=== PATIENT | female | born 1970 | race Caucasian/White ===

== ENCOUNTER 2018-10-12 17:20 | Emergency (ER) | payer SELFPAY ==
[2018-10-12 18:00] VITALS: BP 130/73; PULSE 68; TEMP 97.9; BMI 35.5
--- NOTE | 2018-10-12 18:03 | PDOC ---
Rapid Medical Evaluation Chief Complaint: Cold Symptoms Time Seen by Provider: 10/12/18 17:58 Medical Evaluation: Allergies Allergy/AdvReac Type Severity Reaction Status Date / Time No Known Allergies Allergy Verified 04/30/16 12:09 10/12/18 17:59 I have performed a brief in-person evaluation of this patient. The patient presents with a chief complaint of:fever, sore throat x 5 days Pertinent physical exam findings: erythema no exudate to throat I have ordered the following: throat culture The patient will proceed to the ED for further evaluation. 10/12/18 18:01 Discharge Disposition - Discharge Dispostion Condition at time of disposition: Stable - Referrals - Patient Instructions - Post Discharge Activity
--- NOTE | 2018-10-12 18:48 | PDOC ---
History of Present Illness - General Chief Complaint: Cold Symptoms Stated Complaint: FEVER Time Seen by Provider: 10/12/18 17:58 History Source: Patient Exam Limitations: Clinical Condition - History of Present Illness Initial Comments: 10/12/18 18:44 Patient with no significant past medical history present with complaint of five- day history of sore throat, fever and body aches. Patient reported fever of 102 this morning and has been taking Tylenol Motrin [id number] for fever. Patient denies nausea or vomiting. Patient denies cough, runny nose Timing/Duration: other (5 days) Past History - Past Medical History Allergies/Adverse Reactions: Allergies Allergy/AdvReac Type Severity Reaction Status Date / Time No Known Allergies Allergy Verified 04/30/16 12:09 Home Medications: Ambulatory Orders Amox-Tr/K Cl [Augmentin - 875Mg Tablet] 1 tab PO BID #14 tablet 10/12/18 Asthma: Yes CVA: No COPD: No DVT: No - Surgical History GI Surgery: No - Immunization History Immunization Up to Date: No - Suicide/Smoking/Psychosocial Hx Smoking History: Never smoked Have you smoked in the past 12 months: No Information on smoking cessation initiated: No Hx Alcohol Use: No Drug/Substance Use Hx: No Substance Use Type: None Review of Systems - Review of Systems Able to Perform ROS?: Yes Is the patient limited [place]ian proficient: No Constitutional: Yes: Chills, Fever, Malaise HEENTM: Yes: Symptoms Reported, See HPI, Throat Pain. No: Eye Pain, Blurred Vision, Tearing, Recent change in vision, Double Vision, Cataracts, Ear Pain, Ocular Prothesis, Ear Discharge, Nose Pain, Nose Congestion, Tinnitus, Nose Bleeding, Hearing Loss, Throat Swelling, Mouth Pain, Dental Problems, Difficulty Swallowing, Mouth Swelling, Other Respiratory: No: Symptoms reported, See HPI, Cough, Orthopnea, Shortness of Breath, SOB with Exertion, SOB at Rest, Stridor, Wheezing, Productive cough, Hemoptysis, Other Cardiac (ROS): No: Symptoms Reported, See HPI, Chest Pain, Edema, Irregular Heart Rate, Lightheadedness, Palpitations, Syncope, Chest Tightness, Other ABD/GI: No: Nausea, Vomiting All Other Systems: Reviewed and Negative *Physical Exam - Vital Signs Last Vital Signs Temp Pulse Resp BP Pulse Ox 97.9 F 68 18 130/73 99 10/12/18 17:57 10/12/18 17:57 10/12/18 17:57 10/12/18 17:57 10/12/18 17:57 - Physical Exam Comments: 10/12/18 18:46 GENERAL: Well developed, well nourished. Awake and alert. No acute distress. HEENT: Mild erythema to the pharynx. No exudates throat. Normocephalic, atraumatic. PERRLA, EOMI. No conjunctival pallor. Sclera are non-icteric. Moist mucous membranes. NECK: Supple. Full ROM. CARDIOVASCULAR: Regular rate and rhythm. No murmurs, rubs, or gallops. Distal pulses are 2+ and symmetric. PULMONARY: No evidence of respiratory distress. Lungs clear to auscultation bilaterally. No wheezing, rales or rhonchi. ABDOMINAL: Soft. Non-tender. Non-distended. No rebound or guarding. No organomegaly. Normoactive bowel sounds. MUSCULOSKELETAL Normal range of motion at all joints. SKIN: Warm and dry. No rashes. No jaundice. NEUROLOGICAL: Alert, awake, appropriate. Gait is normal without ataxia. PSYCHIATRIC: Cooperative. Good eye contact. Appropriate mood General Appearance: Yes: Nourished, Appropriately Dressed. No: Apparent Distress Moderate Sedation - Procedure Monitoring Vital Signs: Procedure Monitoring Vital Signs Temperature 97.9 F 10/12/18 17:57 Pulse Rate 68 10/12/18 17:57 Respiratory Rate 18 10/12/18 17:57 Blood Pressure 130/73 10/12/18 17:57 O2 Sat by Pulse Oximetry (%) 99 10/12/18 17:57 Medical Decision Making - Medical Decision Making 10/12/18 18:47 Patient with no significant past medication present with complaint of five-day history of sore throat, fever and body aches. Patient reported no cough or any URI symptoms. Rapid strep and rapid flu tests ordered. Patient afebrile now but patient has been taking Tylenol or Motrin [id number]. Treat based on rapid strep and flu tests 10/12/18 19:39 rapid flu neg 10/12/18 19:48 rapid strep negative. Patient stable for discharge *DC/Admit/Observation/Transfer Diagnosis at time of Disposition: Pharyngitis Qualifiers: Pharyngitis/tonsillitis etiology: unspecified etiology Qualified Code(s): J02.9 - Acute pharyngitis, unspecified - Discharge Dispostion Disposition: HOME Condition at time of disposition: Stable Decision to Admit order: No - Prescriptions Prescriptions: Amox-Tr/K Cl [Augmentin - 875Mg Tablet] 1 tab PO BID #14 tablet - Referrals Referrals: Ramón Noel MD [Staff Physician] - - Patient Instructions Additional Instructions: Your flu test was negative. Take medications as prescribed. Follow-up with referred ENT if symptoms persist for more than 4 days - Post Discharge Activity
== END 2018-10-12 19:49 | disposition home or self-care (01) ==
LOC: JERFT 17:20
CPT/HCPCS: 87070; 87804; 87880; 99281-25

== ENCOUNTER 2021-03-15 19:55 | Emergency (ER) | payer OTHER ==
[2021-03-15 20:04] VITALS: BP 137/71; PULSE 86; TEMP 97.8; BMI 37.1
[2021-03-15] MEDS ORDERED: KETOROLAC TROMETHAMINE 60 MG/2 ML VIAL IM ONE (22:06)
[2021-03-15] MEDS ORDERED: KETOROLAC TROMETHAMINE 60 MG/2 ML VIAL ONE (22:08)
== END 2021-03-15 22:14 | disposition home or self-care (01) ==
LOC: FER 19:55
PROC: 3E0233Z Introduction of Anti-inflammatory into Muscle, Percutaneous Approach (ICD-10-PCS; principal; 2021-03-15)
DX: M25.561 Pain in right knee (principal)
CPT/HCPCS: 93971-TC; 96372; 99284-25